=== PATIENT | male | born 1980 | race Caucasian/White ===

== ENCOUNTER → 2024-05-22 | Outpatient (CLI) | payer OTHER | END | disposition home or self-care (01) | LOC: RAD 09:45 | PROVIDERS: ATTEND Nurse Practitioner Adult Health | DX: M43.8X4 Other specified deforming dorsopathies, thoracic region (principal); Z00.00 Encounter for general adult medical examination without abnormal findings; M25.78 Osteophyte, vertebrae | CPT/HCPCS: 71046 ==